=== PATIENT | female | born 2000 ===

== ENCOUNTER 2021-06-02 17:41 | Emergency (ER) | payer OTHER ==
[~2021-06-02] VITALS: Ht 147 cm; Wt 62.6 kg
[2021-06-02 17:48] VITALS: BP 131/91
--- NOTE | 2021-06-02 18:06 | ED Upper Extremity ---
General Chief Complaint: Upper Extremity Stated Complaint: L PINKY LAC Nursing Triage Note: PT AMB TO FT 2 W REPORTS OF SMASHING LEFT PINKY IN DOOR AT APPROX 1600 TODAY AT WORK. LACERATION NOTED, DRESSING IN PLACE UPON ARRIVAL TO ED. PT A&OX4. Source: patient, family Exam Limitations: no limitations History of Present Illness Date Seen by Provider: Jun 02, 2021 Time Seen by Provider: 17:55 Initial Comments The patient presents to the ER by private conveyance with significant other and chief complaint about 4:00 this afternoon, 2 hours prior to arrival she had her left hand caught in a door frame of the car. She has significant pain despite ibuprofen and dressings. She has not had a tetanus vaccine in the last 5 years. No other significant medical history. She finished her menses 3 days ago. She is right-handed. Allergies and Home Medications Allergies Coded Allergies: No Known Drug Allergies (Unverified , 06/02/21) Patient Home Medication List Home Medication List Reviewed: Yes Cephalexin (Cephalexin) 500 Mg Tablet, 500 MG PO TID Prescribed by: PRIYANKA RODRIGUEZ on 06/02/212000 Hydrocodone/Acetaminophen (Hydrocodone-Acetamin 5-325 mg) 1 Each Tablet, 1 TAB PO Q6H PRN for PAIN-MODERATE (5-7) Prescribed by: PRIYANKA RODRIGUEZ on 06/02/212001 Review of Systems Constitutional: No chills, No diaphoresis EENTM: No ear discharge, No ear pain Respiratory: No cough, No short of breath Cardiovascular: No chest pain, No palpitations Gastrointestinal: No abdominal pain, No nausea Genitourinary: No discharge, No dysuria : No LMP: May 25, 2021 Musculoskeletal: see HPI All Other Systems Reviewed Negative Unless Noted: Yes Past Felsbiy-Ekrlka-Zzipoz Hx Patient Social History Tobacco Use?: No Use of E-Cig and/or Vaping dev: No Substance use?: No Alcohol Use?: No Immunizations Up To Date Influenza Vaccine Up-to-Date: No; Not Current First/Initial COVID19 Vaccinat: 2020 Second COVID19 Vaccination Fox: 2020 Third COVID19 Vaccination Date: NONE COVID19 Vaccine Cobbler Upper: MODERNA Past Medical History Last Menstrual Period: May 30, 2021 Physical Exam Vital Signs Vital Signs - First Documented 06/02/21 17:48 Temp 36.6 Pulse 67 Resp 20 B/P (MAP) 131/91 (104) Pulse Ox 99 O2 Delivery Room Air Capillary Refill : Less Than 3 Seconds Height, Weight, BMI Height: '" Weight: lbs. oz. kg; 28.00 BMI Method: General Appearance: WD/WN, mild distress HEENT: PERRL/EOMI, pharynx normal Neck: full range of motion, normal inspection Cardiovascular: normal peripheral pulses, regular rate, rhythm Respiratory: no respiratory distress, no accessory muscle use Wrist: Yes normal inspection, Yes non-tender, Yes no evidence of injury, Yes normal ROM Hand: laceration (Blunt laceration irregular over the distal phalanx involving the distal portion of the nail on the left hand fifth digit. Swelling erythema and tenderness to palpation. Limited range of motion.) Neurologic/Tendon: normal sensation, normal motor functions, responds to pain Neurologic/Psychiatric: alert, normal mood/affect, oriented x 3 Procedures/Interventions Wound Location: Upper Extremities Other Wound Location Left hand fifth digit distal phalanx Wound Length (cm): 2 Wound's Depth, Shape: linear, nail-avulsed, sub Q Wound Explored: no foreign body removed Irrigated w/ Saline (ccs): 250 Betadine Prep?: Yes (Chlorhexidine and sterile saline) Anesthesia: 1% Lidocaine Volume Anesthetic (ccs): 4 Wound Debrided: minimal Suture: Prolene Suture Size: 5-0 Number of Sutures: 4 Layer Closure?: 1 Number Deep Layer Sutures: 0 Sterile Dressing Applied?: Yes Progress Cleaned wound thoroughly, cleaned the skin edges with alcohol and then performed a digital block using 1% lidocaine and a 25-gauge 1-1/2 inch needle using the standard fashion. When the patient was ascertained to be numb we recleaned the finger draped out in sterile dressing/drapes and flush the wound with sterile saline. We then reapproximated the skin edges and using 4 simple interrupted sutures of 5-0 Prolene. Wound was hemostatic and the patient tolerated procedur e well. Turnicot was on for about 2.5 minutes. Progress/Results/Core Measures Results/Orders My Orders Orders - PRIYANKA RODRIGUEZ Dipht,Pertpam(Acell),Tet Adult (Boostrix (06/02/21 18:15) Lidocaine 1% Inj 20 Ml (Xylocaine 1% Inj (06/02/21 18:15) Lidocaine 1% Inj 50 Ml (Xylocaine 1% Inj (06/02/21 18:24) Medications Given in ED Current Medications Medications Dose Ordered Sig/Armani Route Start Time Stop Time Status Last Admin Dose Admin Diphtheria/ Tetanus/Acell Pertussis 0.5 ml ONCE ONCE IM 06/02/21 18:15 06/02/21 18:16 DC 06/02/21 18:27 0.5 ML Lidocaine HCl 50 ml STK-MED ONCE .ROUTE 06/02/21 18:24 06/02/21 18:28 DC 06/02/21 18:29 50 ML Vital Signs/I&O Blood Pressure Mean: 104 Progress Progress Note : Time: 18:05 Progress Note Tetanus vaccine. Plan to clean the wound and flushed with saline. We will reapproximate the distal tip with stitches and obtain plain films of the left hand. Diagnostic Imaging Diagonstic Imaging: Xray Plain Films/CT/US/NM/MRI: hand (l) Comments [facility], [place] NAME: TORO SANDHU [facility] REC#: [id number] PT STATUS: REG ER : 2000 PHYSICIAN: ELIJAH FAIRBANKS MD ADMIT DATE: 06/02/21/ER Signed Date of Exam:06/02/21 FINGER(S) CLINICAL HISTORY: Smashed left 5th digit in the door. COMPARISON: None. TECHNIQUE: 3 views of the left fingers. FINDINGS: Tuft fracture is seen involving the distal phalanx of the left 5th digit. No other acute fractures are seen in the left hand. IMPRESSION: Tuft fracture in the distal left phalanx of the left 5th digit. Dictated by: Dictated on workstation # [id number] Dict: 06/02/211815 Trans: 06/02/211818 [facility] [id number] Interpreted by: KIRIT ALFARO DO Electronically signed by: KIRIT ALFARO DO 06/02/211818 Reviewed: Reviewed by Me Departure Impression Primary Impression: Laceration of finger of left hand with damage to nail Qualified Codes: S61.317A - Laceration without foreign body of left little finger with damage to nail, initial encounter Additional Impression: Finger fracture, left Qualified Codes: S62.637A - Displaced fracture of distal phalanx of left little finger, initial encounter for closed fracture Disposition: 01 HOME, SELF-CARE Condition: Stable Departure-Patient Inst. Decision time for Depature: 19:58 Referrals: RUFINO PULLIAM DO NO,LOCAL PHYSICIAN (PCP) Primary Care Physician Patient Instructions: Laceration Repair With Stitches (DC), Finger Fracture (DC) Add. Discharge Instructions: You have a small fracture in the distal tip of your finger but the tendons seem to be intact so as long as you retain the ability to flex and extend your finger normally then nothing further needs to be done for this fracture and it will heal on its own over about 6 weeks. If however you have any difficulty with maintaining pain or range of motion of your finger then you can follow-up with Dr. PULLIAM, hand surgeon for reevaluation in the clinic. You need to keep the laceration clean with regular soap and water only. Do not use hydrogen peroxide, alcohol, chlorhexidine or iodine as this will delay wound healing. After you clean with soap and water at least once a day then apply a dollop of Vaseline, triple antibiotic ointment and cover with some gauze dressings to keep it clean and dry. Do not submerse under water until the sutures are out. It is okay to wash your hands under running water or take a shower however. Keep your hand elevated above the level of your heart to help reduce swelling and therefore pain. Tylenol 1000 mg every 8 hours as necessary for pain. Ibuprofen 800 mg every 8 hours as necessary for pain. Ice 20 minutes on every 2 hours as necessary for pain and swelling for the first 2 to 3 days. Hydrocodone 1 tablet every 6 hours as necessary for severe breakthrough pain. Keflex 1 capsule 3 times a day for a week to prevent infection in your hand. If you are having increasing redness swelling and/or worsening pain or you develop fever these may be signs of an infection and I would encourage you to follow-up with your doctor or return to the ER for reexamination promptly. Change the dressings daily or more frequently if it becomes soiled. Return to the ER to have the sutures removed in 10 to 14 days at no additional charge. Return sooner if you have any questions about the wound. All discharge instructions reviewed with patient and/or family. Voiced understanding. Scripts Hydrocodone/Acetaminophen (Hydrocodone-Acetamin 5-325 mg) 1 Each Tablet 1 TAB PO Q6H PRN for PAIN-MODERATE (5-7), #15 TAB 0 Refills Prov: PRIYANKA RODRIGUEZ 06/02/21 Cephalexin (Cephalexin) 500 Mg Tablet 500 MG PO TID for 7 Days, #21 TAB 0 Refills Prov: PRIYANKA RODRIGUEZ 06/02/21 Work/School Note: Work Release Form Date Seen in the Emergency Department: Jun 02, 2021 Return to Work: Jun 03, 2021 Restrictions: Need Release from Doctor Other Restrictions Listed Below: No submersion or soiling of dressing until sutures are out 10 to 14 days Copy Copies To 1: RUFINO PULLIAM DO PRIYANKA RODRIGUEZ Jun 02, 2021 18:06
[2021-06-02] MEDS ORDERED: TETANUS,DIPTH,PERTUSS P/F (BOOSTRIX) 0.5 ML VIAL IM ONE (18:15)
[2021-06-02] MEDS ORDERED: LIDOCAINE 1% INJ 20 ML VIAL INJ ONE (18:15)
--- NOTE | 2021-06-02 18:18 | Diagnostic Imaging Report ---
CLINICAL HISTORY: Smashed left 5th digit in the door. COMPARISON: None. TECHNIQUE: 3 views of the left fingers. FINDINGS: Tuft fracture is seen involving the distal phalanx of the left 5th digit. No other acute fractures are seen in the left hand. IMPRESSION: Tuft fracture in the distal left phalanx of the left 5th digit. Dictated by: Dictated on workstation # [id number]
[2021-06-02] MEDS ORDERED: LIDOCAINE 1% INJ 50 ML (XYLOCAINE) VIAL ONE (18:24)
[2021-06-02] MEDS ORDERED: CEPH500T PO (20:01)
[2021-06-02] MEDS ORDERED: ACHD5005 PO (20:01)
== END 2021-06-02 20:15 | disposition home or self-care (01) ==
LOC: ER 17:43
DX: S62.637A Displaced fracture of distal phalanx of left little finger, initial encounter for closed fracture (principal); S61.317A Laceration without foreign body of left little finger with damage to nail, initial encounter; Z23 Encounter for immunization; W23.1XXA Caught, crushed, jammed, or pinched between stationary objects, initial encounter
CPT/HCPCS: 12001; 73140; 90715

== ENCOUNTER → 2022-07-15 | Outpatient (CLI) | payer BC, OTHER ==
[~2022-07-15] MED LIST: ACHD5005 PO; CEPH500T PO
--- NOTE | 2022-07-15 15:39 | Diagnostic Imaging Report ---
INDICATION: Supervision normal . TECHNIQUE: Multiple real-time grayscale images were obtained over the gravid uterus. COMPARISON: None FINDINGS: Single viable intrauterine currently in a transverse presentation, head to maternal left. Amount of amniotic fluid is normal, index 12.8 cm. Placenta anterior and without evidence for previa. Visualized anatomical structures including the kidneys, bladder, stomach, intracranial structures, four-chamber heart, three-vessel cord and insertion site, spine and extremities appearing unremarkable. Cervical length at 6.2 cm and unremarkable. Biometrical measurements are as follows: Biparietal 4.70 cm, age 20 weeks 2 days. Head circumference 18.29 cm, age 20 weeks 5 days. Abdominal circumference 14.78 cm, age 20 weeks 1 days. Femur length 3.05 cm, age 19 weeks 4 days. Sonographic estimate age: 20 weeks 2 days. Sonographic estimated date of delivery: 11/30/2022. Estimated Weight: 318 gm (+/- 46 gm). LMP percentile: 18%. heart rate: 139 beats per minute. number: 1 of 1. IMPRESSION: 1. Single viable intrauterine , currently in a transverse presentation. 2. Sonographic estimated age 20 weeks 2 days, with an estimated date of delivery 11/30/2022. 3. No sonographic abnormalities demonstrated at this time. Dictated by: Dictated on workstation # [id number]
== END ==
LOC: RAD 09:38
PROVIDERS: ATTEND Nurse Practitioner Women's Health
DX: Z34.02 Encounter for supervision of normal first pregnancy, second trimester (principal); Z3A.20 20 weeks gestation of pregnancy
CPT/HCPCS: 76805